=== PATIENT | female | born 1980 | race Caucasian/White ===

== ENCOUNTER 2019-02-09 21:26 | Emergency (ER) | payer SELFPAY ==
[~2019-02-09] VITALS: Ht 157.5 cm; Wt 67.3 kg
[2019-02-09 21:29] VITALS: BP 137/78; PULSE 109; RESP 20; Ht 157.5 cm; Wt 67.3 kg
[2019-02-09] MEDS ORDERED: LIDOCAINE 1% (MPF) 5 ML VIAL INFIL ONE (22:00)
[2019-02-09] MEDS ORDERED: DIPHTH/TET/ACEL PERTUSS (ADULT) 0.5 ML VIAL IM* ONE (22:00)
--- NOTE | 2019-02-09 22:18 | ERD ---
ER Documentation Chief Complaint Chief Complaint L hand lac from prepping food today HPI 38-year-old female [id number] presents with lacerations to the left upper extremity particularly her left hand. She was cutting in the kitchen today next only cut her hand. Unsure of her last tetanus vaccination. ROS All systems reviewed and are negative except as per history of present illness. Allergies Allergies: Coded Allergies: No Known Allergy (Unverified , 02/09/19) PMhx/Soc Medical and Surgical Hx: pt denies Medical Hx, pt denies Surgical Hx Hx Alcohol Use: No Hx Substance Use: No Hx Tobacco Use: No Smoking Status: Never smoker FmHx Family History: No diabetes Physical Exam Vitals Vital Signs Date Temp Pulse Resp B/P (MAP) Pulse Ox O2 O2 Flow FiO2 Time Delivery Rate 02/09/19 98.2 109 20 137/78 100 21:29 (97) Physical Exam Const: No acute distress Head: Atraumatic Eyes: Normal Conjunctiva ENT: Normal External Ears, Nose and Mouth. Neck: Full range of motion. No meningismus. Resp: Clear to auscultation bilaterally Cardio: Regular rate and rhythm, no murmurs Hand -left: Skin: Palm laceration 1.5 inches in length at the base of third finger, 1 inch laceration on dorsal surface of hand and dorsal webspace between third and fourth digits Compartments: Soft Sensation: Intact shoulder/pinky/middle finger/thumb web space Bones: Nontender Snuffbox: Nontender Joints: No effusion Wrist: Flex/Ext: Normal Uln/Radial deviation: Normal Pron/Supination Normal Finger: Flex/Ext: Normal Add/abd: Normal Thumb: Flex/Ext: Normal Opposition: Normal Thumbs up: Normal Results 24 hrs Current Medications Medications Dose Sig/Callum Start Time Status Last (Trade) Ordered Route PRN Stop Time Admin Dose Reason Admin Diphtheria/ 0.5 ml ONCE ONCE 02/09/19 DC Tetanus/Acell IM* 22:00 Pertussis 02/09/19 22:01 (Adacel) Lidocaine 5 ml ONCE ONCE 02/09/19 DC (Xylocaine INFIL 22:00 1% (Mpf)) 02/09/19 22:01 Procedures/MDM The skin edges of the laceration were infiltrated with 1% lidocaine . The laceration was irrigated with copious amounts of normal saline. The wound was prepped with Betadine. On examination under direct light, there was no foreign body seen. The laceration was repaired with simple interrupted sutures. After repair, there was no continuing bleeding on repair and there did not appear to be any complication related to repair. The patient tolerated the procedure well and the wound was appropriately dressed and bandaged. I recommended the patient return in 2 days for a wound check and 7-10 days for removal of sutures. Tetanus vaccination given. Patient counseled regarding my diagnostic impression and care plan. Prior to discharge all questions answered. Pt agrees with treatment plan and understands strict return precautions. Pt is instructed to follow up with primary care provider within 24-48 hours. Precautionary instructions provided including instructions to return to the ER if not improving or for any worsening or changing symptoms or concerns. Departure Diagnosis: Primary Impression: Laceration Condition: Stable Patient Instructions: Laceration, Hand Additional Instructions: WOUND CHECK:CONSULTE A JYA MDICO EN 2 ochoa para reilly JAY HERIDA. SUTURE REMOVAL:CONSULTE A JAY MDICO PARA SACAR JAY PUNTOS.PARA LA KAREL 5-6 ochoa.EN [facility] 7-10 ochoa. TEJ QUINONES PA-C Feb 09, 2019 22:18
== END 2019-02-09 22:53 | disposition home or self-care (01) ==
LOC: FTE 21:26
DX: S61.213A Laceration without foreign body of left middle finger without damage to nail, initial encounter (principal); W26.9XXA Contact with unspecified sharp object(s), initial encounter; Y92.000 Kitchen of unspecified non-institutional (private) residence as the place of occurrence of the external cause; Z23 Encounter for immunization
CPT/HCPCS: 90471; 90715

== ENCOUNTER 2019-02-13 13:27 | Emergency (ER) | payer SELFPAY ==
[~2019-02-13] VITALS: Wt 71.7 kg
[2019-02-13 13:31] VITALS: BP 130/81; PULSE 99; RESP 18
--- NOTE | 2019-02-13 13:53 | ERD ---
ER Documentation Chief Complaint Chief Complaint LEFT WOUND WOUND CHECK HPI 38-year-old female with no significant past medical history presents for wound check of her left hand laceration. She had the laceration repaired here in the ER about 4 days ago. She denies any fevers or chills. No active bleeding noted. States that the hand is healing well. She does admit to some numbness in the area. No other modifying factors noted. home medications: none ROS All systems reviewed and are negative except as per history of present illness. Allergies Allergies: Coded Allergies: No Known Allergy (Unverified , 02/09/19) PMhx/Soc Medical and Surgical Hx: pt denies Medical Hx, pt denies Surgical Hx Hx Alcohol Use: No Hx Substance Use: No Hx Tobacco Use: No FmHx Family History: No coronary disease Physical Exam Vitals Vital Signs Date Temp Pulse Resp B/P (MAP) Pulse Ox O2 O2 Flow FiO2 Time Delivery Rate 02/13/19 99.3 99 18 130/81 99 13:31 (97) Physical Exam Const: No acute distress Resp: Clear to auscultation bilaterally Cardio: Regular rate and rhythm, no murmurs Skin: No petechiae or rashes Back: No midline or flank tenderness Ext: left hand laceration with sutures noted over the cordova and dorsal side of base 3rd digit, no active bleeding, no hematoma, no erythema, no warmth, able to move all fingers Neur: Awake and alert, sensation intact on all fingers Psych: Normal Mood and Affect Procedures/MDM Medical Decision Making: Patient presents for wound check for left hand laceration that was repaired during the ER about 4 days ago. Patient appeared well on physical exam. Laceration site appears to be healing well. The sutures are intact. Area is clean and dry. Patient s neurovascular intact. She did complain of some numbness in the area. Advised patient that numbness can be a normal part of the injury and expect to improve over time. However patient was referral to the [facility] hand clinic for evaluation if symptoms do not improve Advised regarding wound care. Also advised to return to ER in 7 days for suture removal. Work note given. Patient advised to follow up with PCP in 1-2 days. Patient advised to return to ED for new or worsening symptoms. Patient stable on discharge from the ED. Disclaimer: Inadvertent spelling and grammatical errors are likely due to EHR/dictation software use and do not reflect on the overall quality of patient care. Also, please note that the electronic time recorded on this note does not necessarily reflect the actual time of the patient encounter. Departure Diagnosis: Primary Impression: Encounter for wound re-check Condition: Fair Patient Instructions: Wound Check, Lac F/U (No Infection) Referrals: [facility] YOU HAVE RECEIVED A MEDICAL SCREENING EXAM AND THE RESULTS INDICATE THAT YOU DO NOT HAVE A CONDITION THAT REQUIRES URGENT TREATMENT IN THE EMERGENCY DEPARTMENT. FURTHER EVALUATION AND TREATMENT OF YOUR CONDITION CAN WAIT UNTIL YOU ARE SEEN IN YOUR DOCTORS OFFICE WITHIN THE NEXT 1-2 DAYS. IT IS YOUR RESPONSIBILITY TO MAKE AN APPOINTMENT FOR FOLOW-UP CARE. IF YOU HAVE A PRIMARY DOCTOR --you should call your primary doctor and schedule an appointment IF YOU DO NOT HAVE A PRIMARY DOCTOR YOU CAN CALL OUR PHYSICIAN REFERRAL HOTLINE AT IF YOU CAN NOT AFFORD TO SEE A PHYSICIAN YOU CAN CHOSE FROM THE FOLLOWING [facility] [address] [facility] [address] [facility] [address] [facility] [address] [facility] [facility] [address] [facility]. [facility]. [address] [facility] Additional Instructions: Llame al doctor MAANA y rosmery cipriano PASQUALE PARA DENTRO DE 1-2 GONCALVES.Dgale a la secretaria que nosotros le instruimos hacer esta pasquale.Avise o llame si marino condicin se empeora antes de la pasquale. Regresa aqui si peor o no mejor. JORGE ALBERTO GONZALES DO Feb 13, 2019 13:53
== END 2019-02-14 08:31 | disposition home or self-care (01) ==
LOC: FTE 13:27 → E/R 02-14 08:31
DX: Z48.01 Encounter for change or removal of surgical wound dressing (principal)
CPT/HCPCS: 99281